=== PATIENT | male | born 2000 | race Caucasian/White ===

== ENCOUNTER 2023-10-08 13:35 | Emergency (ER) | payer OTHER ==
[~2023-10-08] VITALS: Ht 182.9 cm; Wt 80.0 kg
[2023-10-08 13:40] VITALS: BP 122/92; PULSE 92; RESP 18; TEMP 98.3; O2SAT 100
== END 2023-10-08 14:17 ==
LOC: ER 13:35
DX: Z76.1 Encounter for health supervision and care of foundling (principal)
CPT/HCPCS: 99283